=== PATIENT | female | born 1985 | race Caucasian/White ===

== ENCOUNTER 2017-01-15 21:03 | Emergency (ER) | payer MEDICAID, OTHER ==
[2017-01-15] MEDS ORDERED: diphenhydrAMINE 50 MG Cap PO ONE (22:23)
--- NOTE | 2017-01-15 22:24 | EDM.PDOC ---
ED HPI GENERAL MEDICAL PROBLEM - General Chief Complaint: Eye Problems Stated Complaint: SWOLLEN EYE Time Seen by Provider: 01/15/17 22:08 Source of Information: Reports: Patient History Limitations: Reports: No Limitations - History of Present Illness INITIAL COMMENTS - FREE TEXT/NARRATIVE: Patient is a 31-year-old female who presents to the ED complaining of swelling to the left upper eyelid. Patient states she was at the park pushing a child on a swing and rubbed her left eye. She developed swelling to the left upper eyelid with unknown etiology. This occurred approximately 1 hour ago. She has no history of allergies. Minimal pain present. No vision changes noted, purulent drainage, pain with EOM, nausea/vomiting, fever/chills, shortness of breath, no foreign body sensation present, redness, or any additional complaints. - Related Data Allergies Allergy/AdvReac Type Severity Reaction Status Date / Time No Known Allergies Allergy Verified 01/15/17 21:42 Home Meds: Home Meds . 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: Social & Family History - Family History Family Medical History: Noncontributory - Tobacco Use Smoking Status *Q: Former Smoker Years of Tobacco use: 13 Used Tobacco, but Quit: No Month Tobacco Last Used: 04/2014 Second Hand Smoke Exposure: No - Caffeine Use Caffeine Use: Reports: Soda, Tea - Alcohol Use Days Per Week of Alcohol Use: 4 (Pt reports heavy alcohol use prior to ) Number of Drinks Per Day: 6 (Pt unsure of actual amounts used, notes heavy use, averaging 6+ shots per day prior to ) Total Drinks Per Week: 24 - Recreational Drug Use Recreational Drug Use: No Drug Use in Last 12 Months: No Recreational Drug Type: Reports: Methamphetamine Recreational Drug Use Frequency: Not Used In Over 1 Year Recreational Drug Last Use: Greater than 1 year ago - Living Situation & Occupation Living situation: Reports: with Significant Other ED ROS GENERAL - Review of Systems Review Of Systems: ROS reveals no pertinent complaints other than HPI. ED EXAM GENERAL W FULL EYE - Physical Exam Exam: See Below Exam Limited By: No Limitations General Appearance: Alert, WD/WN, No Apparent Distress Eye Exam: Bilateral Eye: EOMI, PERRL, Other (Swelling noted to the upper left eyelid consistent with allergic reaction. No purulent drainage, no open wounds, no signs of cellulitis. No blepharitis or stye present) Ears: Hearing Grossly Normal Nose: Normal Inspection Throat/Mouth: Normal Voice, No Airway Compromise Neck: Normal Inspection, Supple Respiratory/Chest: No Respiratory Distress, No Accessory Muscle Use Cardiovascular: Normal Peripheral Pulses, Regular Rate, Rhythm Neurological: Alert, Oriented, CN II-XII Intact, Normal Cognition Psychiatric: Normal Affect, Normal Mood Skin Exam: Warm, Dry, Intact, Normal Color Course - Vital Signs Last Recorded V/S: Last Vital Signs Temp 96 F 01/15/17 21:40 Pulse 114 H 01/15/17 21:40 Resp 18 01/15/17 21:40 BP 121/77 01/15/17 21:40 Pulse Ox 96 01/15/17 21:40 - Orders/Labs/Meds Orders: Active Orders 24 hr Category Date Time Status Eye Irrigation [RC] ASDIRECTED Care 01/15/17 22:24 Active Meds: Medications Discontinued Medications Generic Name Dose Route Start Last Admin Trade Name Joel PRN Reason Stop Dose Admin Diphenhydramine HCl 50 mg 01/15/17 22:23 01/15/17 22:31 Benadryl PO 01/15/17 22:24 50 mg ONETIME ONE Administration Sodium Chloride Confirm 01/15/17 22:31 Normal Saline Administered 01/15/17 22:32 Dose 1,000 mls @ as directed .ROUTE .STK-MED ONE Sodium Chloride Confirm 01/16/17 00:04 Normal Saline Administered 01/16/17 00:05 Dose 500 mls @ as directed .ROUTE .STK-MED ONE Sodium Chloride Confirm 01/16/17 00:05 Normal Saline Administered 01/16/17 00:06 Dose 1,000 mls @ as directed .ROUTE .STK-MED ONE Proparacaine HCl 1 ml 01/15/17 22:25 01/15/17 22:30 Proparacaine 0.5% Ophth Soln EYELF 01/15/17 22:26 1 drop ONETIME ONE Administration - Re-Assessments/Exams Free Text/Narrative Re-Assessment/Exam: Will have the left eye irrigated with a Samson lens. Proparacaine was ordered. Patient has no symptoms of corneal abrasion. Thus we will not evaluated eye under slit lamp or utilize Fluress. No visual disturbances noted. Visual acuity test has not been obtained. I ordered Benadryl 50 mg by mouth. 01/15/17 23:10 Swelling has not decreased. She is ready be discharged home. Again there is no signs of infection present. Etiology allergic reaction. Will discharge patient home with instructions with no prescriptions. She'll continue taking Benadryl as needed. Departure - Departure Time of Disposition: 23:11 Disposition: Home, Self-Care 01 Condition: Good Clinical Impression: Acute allergic reaction Qualifiers: Encounter type: initial encounter Qualified Code(s): T78.40XA - Allergy, unspecified, initial encounter - Discharge Information Instructions: Allergies, [id number] Referrals: PCP,None [Primary Care Provider] - Forms: ED Department Discharge Additional Instructions: Take Benadryl 50 mg every 6 hours as needed for swelling to the left eye lid. Do not rub the eye since this will only worsen your symptoms by releasing additional histamines. Utilize cool compresses for irritation. Can take Pepcid 40 mg every day in addition to the Benadryl as long as symptoms persist. Followup with research/program director in 2 days if symptoms have not improved. Return to ED if you develop increase swelling, pain, purulent drainage, vision changes, redness, or any additional new or worsening symptoms. - My Orders Last 24 Hours: My Active Orders 01/15/17 22:24 Eye Irrigation [RC] ASDIRECTED - Assessment/Plan Last 24 Hours: My Active Orders 01/15/17 22:24 Eye Irrigation [RC] ASDIRECTED
[2017-01-15] MEDS ORDERED: Proparacaine 0.5% Ophth Soln 15 ML Bottle EYELF ONE (22:25)
[2017-01-15] MEDS ORDERED: Sodium Chloride 0.9% 1,000 ML ONE (22:31)
[2017-01-16] MEDS ORDERED: Sodium Chloride 0.9% 500 ML ONE (00:04)
[2017-01-16] MEDS ORDERED: Sodium Chloride 0.9% 1,000 ML ONE (00:05)
[2017-01-16 00:26] VITALS: BP 121/77
== END 2017-01-15 23:20 | disposition home or self-care (01) ==
LOC: JD.ED 21:03
DX: T78.40XA Allergy, unspecified, initial encounter (principal); H02.844 Edema of left upper eyelid; Z87.891 Personal history of nicotine dependence
CPT/HCPCS: 99283; A9270

== ENCOUNTER 2017-12-17 05:18 | Emergency (ER) | payer SELFPAY ==
[2017-12-17 05:25] VITALS: BP 124/64
[2017-12-17] MEDS ORDERED: Amoxicillin 500 MG Cap PO ONE (05:40)
--- NOTE | 2017-12-17 05:42 | EDM.PDOC ---
ED HPI GENERAL MEDICAL PROBLEM - General Chief Complaint: ENT Problem Stated Complaint: EAR INFECTION Time Seen by Provider: 12/17/17 05:31 Source of Information: Reports: Patient History Limitations: Reports: No Limitations - History of Present Illness INITIAL COMMENTS - FREE TEXT/NARRATIVE: The patient presents with bilateral ear pain, congestion, runny nose, cough, fever, chills and sore throat. This all started a few days ago. She has some nausea at times. Onset: Gradual Duration: Day(s): Severity: Moderate Improves with: Reports: None Worsens with: Reports: None Associated Symptoms: Reports: Cough, Fever/Chills. 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 Denies: Shortness of Breath Cardiovascular: Reports: No Symptoms Endocrine: Reports: No Symptoms GI/Abdominal: Reports: No Symptoms : Reports: No Symptoms Musculoskeletal: Reports: No Symptoms Skin: Reports: No Symptoms ED EXAM, ENT - Physical Exam Exam: See Below Exam Limited By: No Limitations General Appearance: Alert, No Apparent Distress Ears: Normal External Exam, Normal Canal, TM Erythema (Moderate to the left TM) , TM Fluid (Moderate to the left TM) Nose: Normal Inspection Mouth/Throat: Normal Inspection, Normal Oropharynx Head: Atraumatic, Normocephalic Neck: Normal Inspection Respiratory/Chest: No Respiratory Distress, Lungs Clear, Normal Breath Sounds Cardiovascular: Regular Rate, Rhythm, No Edema, No Murmur GI/Abdominal: Soft, Non-Tender, No Organomegaly, No Mass Back: Normal Inspection Extremities: Normal Inspection Course - Vital Signs Last Recorded V/S: Last Vital Signs Temp 97.3 F 12/17/17 05:22 Pulse 84 12/17/17 05:22 Resp 18 12/17/17 05:22 BP 124/64 12/17/17 05:22 Pulse Ox 98 12/17/17 05:22 - Re-Assessments/Exams Free Text/Narrative Re-Assessment/Exam: 12/17/17 05:40 She has a viral UTI with a left otitis media. I will give her a dose of amoxicillin here and a prescription for more. Departure - Departure Time of Disposition: 05:45 Disposition: Home, Self-Care 01 Condition: Good Clinical Impression: Viral URI Otitis media Qualifiers: Otitis media type: serous Chronicity: acute Laterality: left Recurrence: not specified as recurrent Qualified Code(s): H65.02 - Acute serous otitis media, left ear - Discharge Information Prescriptions: Amoxicillin 1,000 mg PO BID #40 tab Referrals: PCP,None [Primary Care Provider] - Margaret Gillespie STUDENT TEACHER [ED Midlevel Provider] - 1 Week Additional Instructions: Take the amoxicillin 2 pills 2 times per day for 10 days. Drink plenty of fluids. Take motrin or tylenol for any fever. Please return if you are worse.
== END 2017-12-17 05:50 | disposition home or self-care (01) ==
LOC: JD.ED 05:18
DX: H65.02 Acute serous otitis media, left ear (principal); J06.9 Acute upper respiratory infection, unspecified
CPT/HCPCS: 99283; A9270

== ENCOUNTER 2021-10-28 02:53 | Inpatient (IN) | payer SELFPAY ==
[~2021-10-28 02:53] MED LIST: Bupivacaine 0.25% 10 ML SDV ONE
[2021-10-28] MEDS ORDERED: Sodium Chloride 0.9% 10 ML Syringe FLUSH PRN (03:01)
[2021-10-28] MEDS ORDERED: Nalbuphine HCl 10 MG/ 1ML Amp IVPUSH PRN (03:01)
[2021-10-28] MEDS ORDERED: Ondansetron 4 MG/2 ML SDV IVPUSH PRN (03:01)
[2021-10-28] MEDS ORDERED: Oxytocin/Lactated Ringers 10 UNIT/1,000 ML BAG IV SCH ×2 (03:15)
[2021-10-28] MEDS: Lactated Ringers 1,000 ML IV SCH ×4 (04:20→19:30)
[2021-10-28] MEDS ORDERED: fentaNYL 100 MCG/2 ML SDV EPIDUR PRN (08:21)
[2021-10-28] MEDS ORDERED: ePHEDrine 50 MG/ML SDV IVPUSH PRN (08:21)
[2021-10-28] MEDS ORDERED: diphenhydrAMINE 50 MG/ML SDV IVPUSH PRN (08:21)
[2021-10-28] MEDS ORDERED: Bupivacaine/fentaNYL/NS 100 ML Bag EPIDUR PRN (08:21)
[2021-10-28] MEDS: Sodium Chloride 0.9% 10 ML Syringe FLUSH SCH ×2 (13:49→23:28)
[2021-10-28] MEDS ORDERED: Oxytocin/Lactated Ringers 20 UNIT/1,000 ML BAG IV SCH (14:00)
[2021-10-28] MEDS ORDERED: Witch Hazel Medicated Pads 40/Jar TOP PRN (21:24)
[2021-10-28] MEDS ORDERED: Benzocaine/Menthol 20%-0.5% Spray 78 GM Cannister TOP PRN (21:24)
[2021-10-28] MEDS ORDERED: Acetaminophen 325 MG Tab PO PRN (21:24)
[2021-10-28] MEDS ORDERED: Docusate Sodium 100 MG Cap PO PRN (21:24)
[2021-10-28] MEDS: Ibuprofen 600 MG Tab PO PRN (21:36)
[2021-10-29] MEDS ORDERED: Prenatal Multivitamin with Calcium/Folic Acid/Iron Tab PO SCH (09:00)
[2021-10-29] MEDS ORDERED: Measles, Mumps & Rubella Vaccine 0.5 ML SDV SUBCUT ONE (13:04)
[2021-10-29] MEDS: Ibuprofen 600 MG Tab PO PRN (17:15)
[2021-10-29 20:28] VITALS: BP 125/67; PULSE 98
== END 2021-10-29 21:19 | disposition home or self-care (01) | DRG 807 ==
LOC: JD.OB 02:53 → OBSVTOIN 19:57 → JD.OB 19:58
PROVIDERS: ADMIT Obstetrics & Gynecology; ATTEND Obstetrics & Gynecology
PROC: 10E0XZZ Delivery of Products of Conception, External Approach (ICD-10-PCS; principal; 2021-10-28)
PROC: 3E0234Z Introduction of Serum, Toxoid and Vaccine into Muscle, Percutaneous Approach (ICD-10-PCS; 2021-10-28)
PROC: 3E033VJ Introduction of Other Hormone into Peripheral Vein, Percutaneous Approach (ICD-10-PCS; 2021-10-28)
PROC: 3E0R3BZ Introduction of Anesthetic Agent into Spinal Canal, Percutaneous Approach (ICD-10-PCS; 2021-10-28)
PROC: 0U7C7ZZ Dilation of Cervix, Via Natural or Artificial Opening (ICD-10-PCS; 2021-10-28)
PROC: 0KQM0ZZ Repair Perineum Muscle, Open Approach (ICD-10-PCS; 2021-10-28)
DX: O99.214 Obesity complicating childbirth (principal); Z37.0 Single live birth; O99.62 Diseases of the digestive system complicating childbirth; K21.9 Gastro-esophageal reflux disease without esophagitis; O69.81X0 Labor and delivery complicated by cord around neck, without compression, not applicable or unspecified; O70.1 Second degree perineal laceration during delivery; Z87.891 Personal history of nicotine dependence; Z3A.39 39 weeks gestation of pregnancy; Z23 Encounter for immunization
CPT/HCPCS: 01967; 36415; 51702; 59025; 59409; 85025; 86592; 90471; 90707; A9270-GY; J1200; J2590; J3010; J3490; J7120

== ENCOUNTER → 2022-12-11 | Day surgery (SDC) | payer MEDICAID, OTHER ==
[~2022-12-11] MED LIST changes: -Bupivacaine 0.25% 10 ML SDV ONE; +Bupivacaine 0.5%/EPINEPHrine 1:200,000 50 ML MDV ONE; +HYDROmorphone 0.5 MG/0.5 ML Syringe IVPUSH PRN; +HYDROmorphone 0.5 MG/0.5 ML Syringe ONE; +Ketorolac 30 MG/ML SDV ONE; +Lactated Ringers 1,000 ML IV SCH; +Lidocaine 1% 2 ML ONE; +Lidocaine 1% 30 ML SDV ONE; +Midazolam 1 MG/ML 2 ML SDV ONE; +Ondansetron 4 MG/2 ML SDV IVPUSH PRN; +Ondansetron 4 MG/2 ML SDV ONE; +Propofol 200 MG/20 ML SDV ONE; +Sodium Chloride 0.9% 10 ML Syringe FLUSH PRN; +Sodium Chloride 0.9% 10 ML Syringe FLUSH SCH; +ceFAZolin 2 GM Vial ONE; +ePHEDrine 50 MG/ML SDV ONE
[2022-12-11 10:24] VITALS: BP 129/67; PULSE 81
== END | disposition home or self-care (01) ==
LOC: JD.SDS 06:55
PROVIDERS: ATTEND Surgery
DX: D17.5 Benign lipomatous neoplasm of intra-abdominal organs (principal); K21.9 Gastro-esophageal reflux disease without esophagitis; E66.9 Obesity, unspecified; Z88.6 Allergy status to analgesic agent; Z98.890 Other specified postprocedural states; Z79.899 Other long term (current) drug therapy; Z87.891 Personal history of nicotine dependence; Z68.35 Body mass index [BMI] 35.0-35.9, adult
CPT/HCPCS: 22903; J0690; J1170; J1885; J2250; J2405; J2704; J3490; J7120